=== PATIENT | female | born 1970 | race American Indian/Alaskan Native ===

== ENCOUNTER 2022-06-20 10:21 | Observation (INO) ==
--- NOTE | 2022-06-20 10:46 | Emergency Department Note ---
Neuro HPI General Chief Complaint: Neuro Symptoms/Deficit Stated Complaint: tingling and numbness in face and fingers Time Seen by Provider: 06/20/22 10:42 Source: patient Mode of arrival: ambulatory Limitations: no limitations History of Present Illness HPI Narrative: 51-year-old obese female patient with history of T2DM, hyperlipidemia, hypertension, and family history of stroke presents for acute onset right facial numbness in the V2, V3 distribution and numbness and tingling in her right hand that started about 830 this morning. Denies chest pain. Denies lightheadedness or dizziness. Denies visual disturbances. NIH stroke score 1 (moderate sensory loss). On Anticoagulants: No Related Data Home Medications Medication Instructions Recorded Confirmed calcium carbonate 200 mg calcium 400 mg PO .QD 01/21/16 11/25/16 (500 mg) chewable tablet (Tums) ergocalciferol (vitamin D2) 1,250 50,000 unit PO QWEEK 01/21/16 11/25/16 mcg (50,000 unit) capsule (Vitamin D2) loratadine 10 mg tablet 10 mg PO QDAY PRN 01/21/16 11/25/16 tramadol 50 mg tablet 50 mg PO Q6H PRN 11/25/16 11/25/16 Previous Rx's Medication Instructions Recorded clonidine HCl 0.1 mg tablet 0.1 mg PO BID 30 days #60 tabs 03/04/16 carvedilol 12.5 mg tablet 25 mg PO BID 30 days #120 tabs 08/04/16 spironolactone 50 mg tablet 50 mg PO QAM #30 tabs 08/04/16 doxazosin 2 mg tablet 2 mg PO QDAY #30 tabs 11/25/16 amoxicillin 875 mg-potassium 1 tab PO BID #20 tabs 03/11/21 clavulanate 125 mg tablet (Augmentin) codeine 10 mg-guaifenesin 100 mg/5 5 ml PO Q6H PRN bronchitis #120 mL 03/11/21 mL oral liquid mometasone 50 mcg/actuation nasal 2 spray intranasal QDAY PRN sinus 03/11/21 spray (Nasonex) symptoms #17 grams cefdinir 300 mg capsule 600 mg PO QDAY #10 caps 10/28/21 hydrocodone 5 mg-acetaminophen 325 1 tab PO Q8H PRN pain #14 tabs 10/28/21 mg tablet ondansetron HCl 4 mg tablet 4 mg PO Q8H PRN nausea and 10/28/21 (Zofran) vomiting #20 tabs Allergies Allergy/AdvReac Type Severity Reaction Status Date / Time pistachio nut Allergy Intermediate Swelling Verified 06/20/22 10:25 amlodipine AdvReac Unknown Rash Verified 06/20/22 10:25 Enalapril AdvReac Unknown Facial Verified 06/20/22 10:25 swelling hydrochlorothiazide AdvReac Unknown Vomiting Verified 06/20/22 10:25 Review of Systems ROS ROS Narrative: Narrative: All systems ED: reviewed and negative except as stated. [facility] Narrative Patient History Narrative: Narrative: Medical/Surgical/Family History All Active Problems (Updated 06/20/22 @ 13:47 by Meseret Lemus PA-C) Sinusitis (Acute) Epistaxis (Acute) Acute lacunar stroke (Acute) Hypertension, essential (Chronic) Medical History Hypertension, essential Social History Smoking Status: Current every day smoker Alcohol Intake Frequency: a few times a week Exam Narrative Narrative: General: AOx3, NAD, nontoxic appearing. Pleasant and conversant. HEENT: PERRL, EOMI, normocephalic. Moist mucous membranes. Normal facies and normal dentition. Chest: Symmetric, no pain to palpation Respiratory: Lungs clear to auscultation bilaterally. No respiratory distress. Unlabored breathing. Heart: Regular rate and rhythm, no murmurs/clicks/rubs. Abdomen: Non-tender, Non distended, normal bowel tones. No organomegaly. Extremities: Warm and well perfused. No edema. DP 2+ bilaterally. No venous stasis. There is some right groin tenderness, new presentation for her. Neuro: No focal deficits. Cranial nerves II-XII grossly normal. NIH stroke s core 1, sensory loss to V2 V3 nerve distribution. No nystagmus. No visual field neglect. Skin: Warm dry, no rashes or lesions, no cyanosis. Psych: Normal mood and affect Heme/Lymph: No abnormal bruising General Limitations: no limitations Course Course Course Narrative: 51-year-old female presents with TIA symptoms. Reevaluation(s) Reevaluation #1: Obtain head CT without contrast and basic lab work Reevaluation #2: Head CT without contrast was reported as a left lacunar infarct in the left caudate nucleus measuring 6 x 11 mm. I have reached out to telestroke. Blood glucose is 169 and blood pressure is 160/91 mmHg Reevaluation #3: Telestroke, Dr. Shen, recommends against lytics given she has only minor sensory symptoms and no disabling symptoms. She is recommending a bedside swallow eval, which would certainly be in favor of lytics if she has any swallowing issues. Recommend admission and further work-up with echo and MRI of the brain. Permissive hypertension less than 220/120 mmHg. Give 300 mg Plavix load in the ER and start 75 mg and 81 aspirin daily thereafter. Also will start atorvastatin 40 mg. Additional Reevaluation(s): Patient is severely anxious. Concern for starting antiplatelets as she recently suffered epistaxis and had undergo surgical procedure for this. We will give 0.5 mg of oral Ativan x1 dose now. Bedside swallow eval was within normal limits Vital Signs Vital signs: Vital Signs Temperature 97.2 F 06/20/22 10:22 Pulse Rate 86 06/20/22 10:22 Respiratory Rate 18 06/20/22 10:22 Blood Pressure 160/91 06/20/22 10:22 Pulse Oximetry (%) 97 06/20/22 10:22 Oxygen Delivery Method 06/20/22 10:22 Temperature 97.2 F 06/20/22 10:22 Pulse Rate 69 06/20/22 13:01 Respiratory Rate 18 06/20/22 13:01 Blood Pressure 161/88 06/20/22 13:01 Pulse Oximetry (%) 96 06/20/22 13:01 Oxygen Delivery Method 06/20/22 10:22 [facility] Narrative Medical decision making narrative: Lacunar stroke syndrome Patient will need admission overnight for monitoring, echo, MRI of the brain. I have already started Plavix with a 300 mg load and given her 81 mg of aspirin. She has also received 40 mg of atorvastatin. I also completed a CTA of the head and neck which shows only mild atherosclerotic disease in the aortic arch and no significant disease in the carotid bifurcations. I spoken with Dr. Stein who has agreed for observation admission. Lab Data Result diagrams: 06/20/22 11:40 Labs: Lab Results 06/20/22 06/20/22 Range/Units 11:40 11:45 WBC 9.7 (4.5-11.0) K/mcL RBC 4.97 (3.59-5.38) M/mcL Hgb 13.8 (11.2-15.7) g/dL Hct 43.0 (34.1-44.9) % POC Hct 42.0 (36-48) MCV 86.5 (80.0-100.0) fL MCH 27.8 (26.0-34.0) pg MCHC 32.1 (31.0-36.0) g/dL RDW 13.9 (11.5-14.5) % Plt Count 208 (140-440) K/mcL MPV 11.3 H (7.4-10.4) fL Immature Gran % (Auto) 0.3 (0.0-0.5) % Neut % (Auto) 61.6 (38.0-78.0) % Lymph % (Auto) 29.6 (15.5-49.0) % Beadle % (Auto) 7.1 (1.0-12.0) % Eos % (Auto) 1.1 (0.0-7.0) % Baso % (Auto) 0.3 (0.0-2.0) % Lymph # (Auto) 2.88 (1.50-4.80) K/mcL Beadle # (Auto) 0.69 (0.10-0.90) K/mcL Eos # (Auto) 0.11 (0.00-0.70) K/mcL Baso # (Auto) 0.03 (0.00-0.30) K/mcL Immature Gran # 0.03 (0.00-0.05) K/mcl Absolute Neutrophils 6.02 (1.80-8.00) K/mcL POC Sodium 141 (133-145) POC Potassium 4.0 (3.3-5.1) POC Chloride 107 (96-108) POC Total CO2 24.0 (22-30) POC BUN 19 (6-20) POC Creatinine 1.0 (0.6-1.2) POC Glucose 113 H (70-105) POC WB Ioniz Calcium 1.30 (1.16-1.32) Discharge Plan Patient/Caregiver Discharge Instructions Pt seen by [employer] OPERATOR/PA only: Yes Clinical Impression: Acute lacunar stroke Instructions: Ischemic Stroke (DC) Patient Disposition: Xfer As Outpt/Obs ([facility]) Condition: Fair Follow up with: Hao Costa ARNP [Primary Care Provider] - Prescriptions: No Action calcium carbonate [Tums] 200 mg calcium (500 mg) tablet,chewable 400 mg PO .QD ergocalciferol (vitamin D2) [Vitamin D2] 50,000 unit capsule 50,000 unit PO QWEEK loratadine 10 mg tablet 10 mg PO QDAY PRN clonidine HCl 0.2 mg tablet 0.1 mg PO BID 30 Days Qty: 60 4RF carvedilol 6.25 mg tablet 25 mg PO BID 30 Days Qty: 120 3RF Rx Instructions: administer with food spironolactone 25 mg tablet 50 mg PO QAM Qty: 30 4RF tramadol 50 mg tablet 50 mg PO Q6H PRN doxazosin 2 mg tablet 2 mg PO QDAY Qty: 30 6RF amoxicillin-pot clavulanate [Augmentin] 875-125 mg tablet 1 tab PO BID Qty: 20 0RF codeine-guaifenesin 10-100 mg/5 mL liquid 5 ml PO Q6H PRN (Reason: bronchitis) Qty: 120 0RF mometasone [Nasonex] 50 mcg/actuation spray,non-aerosol 2 spray intranasal QDAY PRN (Reason: sinus symptoms) Qty: 17 0RF Rx Instructions: administer into each nostril cefdinir 300 mg capsule 600 mg PO QDAY Qty: 10 0RF hydrocodone-acetaminophen 5-325 mg tablet 1 tab PO Q8H PRN (Reason: pain) Qty: 14 0RF ondansetron HCl [Zofran] 4 mg tablet 4 mg PO Q8H PRN (Reason: nausea and vomiting) Qty: 20 0RF
--- NOTE | 2022-06-20 11:34 | Cat Scan Report ---
History: Right-sided facial and finger numbness TECHNIQUE: The brain was imaged without contrast in axial plane at 2.5 mm intervals. Sagittal and coronal reformats were created. The radiation exposure was limited using dose reduction technology. FINDINGS: There is an ill-defined lacunar infarct involving the lateral border of the head of the left caudate nucleus and the adjacent anterior limb of left internal capsule. It measures approximately 6 x 11 mm in size. This is of undetermined age. No other infarct is detected. There is no hemorrhage or mass effect. Patient has mild atrophy of the frontal lobes and around the sylvian fissures. Ventricles are normal in size. There is no abnormal extra-axial fluid collection. There is severe left side sphenoid sinusitis and moderate left maxillary and milder ethmoid sinusitis. IMPRESSION: Moderate-sized lacunar infarct of undetermined age in the left caudate nucleus and left internal capsule Moderate sinusitis Meseret Lemus was called with the report Interpreted and Authenticated by: Emil Gonzales 06/20/22
[2022-06-20 11:47] LABS: POC Calcium, Ionized 1.3 (1.16-1.32)
[2022-06-20] MEDS ORDERED: LORazepam 0.5 MG TABLET PO ONE ×2 (12:09→15:08)
[2022-06-20] MEDS ORDERED: CLOPIDOGREL 300 MG TABLET PO ONE (12:10)
[2022-06-20] MEDS ORDERED: ASPIRIN 81 MG TAB.CHEW CHEWED ONE (12:12)
[2022-06-20 12:28] LABS: Basophils # (Auto) 0.03 K/mcL (0.00-0.30); Basophils % (Auto) 0.3 % (0.0-2.0); Eosinophils # (Auto) 0.11 K/mcL (0.00-0.70); Eosinophils % (Auto) 1.1 % (0.0-7.0); Hemoglobin 13.8 g/dL (11.2-15.7); Lymphocytes # (Auto) 2.88 K/mcL (1.50-4.80); Lymphocytes % (Auto) 29.6 % (15.5-49.0); Mean Cell Volume 86.5 fL (80.0-100.0); Mean Corpuscular HGB Conc 32.1 g/dL (31.0-36.0); Mean Platelet Volume 11.3 fL (7.4-10.4); Monocytes # (Auto) 0.69 K/mcL (0.10-0.90); Monocytes % (Auto) 7.1 % (1.0-12.0); Neutrophils % (Auto) 61.6 % (38.0-78.0); Platelet Count 208 K/mcL (140-440); RBC 4.97 M/mcL (3.59-5.38); Red Cell Distribution Width 13.9 % (11.5-14.5); WBC 9.7 K/mcL (4.5-11.0)
[2022-06-20] MEDS ORDERED: ONDANSETRON 4 MG ODT TABLET SL ONE (12:45)
[2022-06-20] MEDS ORDERED: LORazepam 1 MG TABLET PO ONE (13:08)
[2022-06-20] MEDS ORDERED: ATORVASTATIN 40 MG TABLET PO STA (13:14)
--- NOTE | 2022-06-20 13:17 | Cat Scan Report ---
History: New stroke symptoms, lacunar infarct in left basal ganglia Technique: Following injection of intravenous nonionic contrast the patient was scanned during the arterial phase from the aortic arch to the top of the head. Sagittal and coronal reformats were created. The radiation exposure was limited using dose reduction technology. FINDINGS: Mild atherosclerotic disease is present in the aortic arch and proximal portions of both subclavian arteries. Is also small amount of eccentric plaque in the carotid bifurcations bilaterally, left greater than right. These are not causing stenosis and there is no apparent ulcerated plaque. The internal carotids are normal with no dissection or thrombosis. The vertebral arteries are normal in caliber and nonstenotic. Incidentally noted is a multinodular goiter. The internal carotids, anterior and middle cerebral arteries are normal in caliber. The vertebral, basilar artery and posterior fossa circulation are also normal. There is no intracranial occlusion or stenosis. No aneurysm or vascular malformation are present. There is no enhancing lesion within the brain. Patient has severe left maxillary and left side sphenoid sinusitis. IMPRESSION: Mild atherosclerotic disease in the aortic arch and carotid bifurcations. No evidence of vascular occlusion or stenosis in the head or neck Sinusitis Meseret Lemus was called with the report Interpreted and Authenticated by: Emil Gonzales 06/20/22
--- NOTE | 2022-06-20 14:43 | Internal Med History&Physical ---
HPI History of Present Illness Patient information: Note initiated : 06/20/22 at 2:34 pm Service Date, if different from initiated Date: [] Patient: Suzanna Shaikh a 51 y/o F admitted on for tingling and numbness in face and fingers. Chief Complaint: [numbness and tingling] Chief complaint: numbness and tingling History of present illness: Ms. Shaikh is a 51 year old F history of type 2 diabetes mellitus, essential hypertensions, mixed dyslipidemia, presenting with 1 day history of numbness and tingling of the right hand and right face and right lips. There was no prior similar episode. Patient does not have any history of stroke or TIA. 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 She denies any focal weakness. She is committing of nausea. She denies any headaches. She denies any confusions. She denies any chest pain or palpitation or shortness of breath. She denies any dysarthria or dysphagia. Denies any hearing or visual changes. Vital signs within normal limits. Labs also within normal limits largely. CT of the head without contrast showing 6 x 11 mm moderately sized lacunar infarct of the left caudate nucleus and left internal capsule. CT angiogram of the head and the neck did not show any hemodynamically significant stenosis. Admission request is called for acute stroke. Constitutional Constitutional: Absent chills, excessive sweating, fatigue, fever(s) or weakness EENT Eyes: Absent blurry vision, change in vision, loss of vision or other visual disturbances Ears: Absent decreased hearing or tinnitus Nose, mouth and throat: Absent abnormal hearing, dry mouth, headache(s), nasal congestion or sore throat Cardiovascular Cardiovascular: Absent chest pain, chest pain at rest, edema, irregular heart rhythm or palpatations Respiratory Respiratory: Absent cough, dyspnea or wheezing Gastrointestinal Gastrointestinal: Absent abdominal pain, constipation, diarrhea, nausea or vomiting Musculoskeletal Musculoskeletal: Absent back pain, deformity, limited range of motion, muscle cramps, muscle weakness or numbness Integumentary Integumentary: Absent lesions, rash or wounds Neurological Neurological: Present numbness and tingling; Absent focal weakness, headache(s) or weakness Psychiatric Psychiatric: Absent anxiety, depression or hallucinations PFSH PFSH All Active Problems (Updated 06/20/22 @ 14:49 by Mac Stein MD) T2DM (type 2 diabetes mellitus) (Acute) Mixed dyslipidemia (Acute) Sinusitis (Acute) Epistaxis (Acute) Acute lacunar stroke (Acute) Hypertension, essential (Chronic) Medical History Hypertension, essential Social History alcohol intake frequency: a few times a week MEDS/ALLERGIES Home Medications and Allergies Home Medications Medication Instructions Recorded Confirmed Type calcium carbonate 200 mg calcium 400 mg PO .QD 01/21/16 11/25/16 History (500 mg) chewable tablet (Tums) ergocalciferol (vitamin D2) 1,250 50,000 unit PO QWEEK 01/21/16 11/25/16 History mcg (50,000 unit) capsule (Vitamin D2) loratadine 10 mg tablet 10 mg PO QDAY PRN 01/21/16 11/25/16 History clonidine HCl 0.1 mg tablet 0.1 mg PO BID 30 days #60 tabs 03/04/16 11/25/16 Rx carvedilol 12.5 mg tablet 25 mg PO BID 30 days #120 tabs 08/04/16 11/25/16 Rx spironolactone 50 mg tablet 50 mg PO QAM #30 tabs 08/04/16 11/25/16 Rx doxazosin 2 mg tablet 2 mg PO QDAY #30 tabs 11/25/16 11/25/16 Rx tramadol 50 mg tablet 50 mg PO Q6H PRN 11/25/16 11/25/16 History amoxicillin 875 mg-potassium 1 tab PO BID #20 tabs 03/11/21 Rx clavulanate 125 mg tablet (Augmentin) codeine 10 mg-guaifenesin 100 mg/5 5 ml PO Q6H PRN bronchitis #120 mL 03/11/21 Rx mL oral liquid mometasone 50 mcg/actuation nasal 2 spray intranasal QDAY PRN sinus 03/11/21 Rx spray (Nasonex) symptoms #17 grams cefdinir 300 mg capsule 600 mg PO QDAY #10 caps 10/28/21 Rx hydrocodone 5 mg-acetaminophen 325 1 tab PO Q8H PRN pain #14 tabs 10/28/21 Rx mg tablet ondansetron HCl 4 mg tablet 4 mg PO Q8H PRN nausea and 10/28/21 Rx (Zofran) vomiting #20 tabs Allergies Allergy/AdvReac Type Severity Reaction Status Date / Time pistachio nut Allergy Intermediate Swelling Verified 06/20/22 10:25 amlodipine AdvReac Unknown Rash Verified 06/20/22 10:25 Enalapril AdvReac Unknown Facial Verified 06/20/22 10:25 swelling hydrochlorothiazide AdvReac Unknown Vomiting Verified 06/20/22 10:25 EXAM Constitutional Vitals: Temp Pulse Resp BP Pulse Ox O2 Del Method 36.2 C 63 18 173/79 94 06/20/22 10:22 06/20/22 14:16 06/20/22 14:16 06/20/22 14:16 06/20/22 14:16 06/20/22 10:22 General appearance: cooperative and no acute distress Head Head exam: Present atraumatic and normocephalic Eye Eye exam: Present EOMI and PERRL ENT ENT exam: Present mucous membranes moist, normal exam and normal external ear exam Additional comments: Right facial and lips numbness Neck Neck exam: Present normal inspection; Absent lymphadenopathy, tenderness or thyromegaly Respiratory Respiratory exam: Absent accessory muscle use, respiratory distress or wheezes Cardiovascular Cardiovascular exam: Present normal rate and rhythm; Absent JVD GI/Abdominal GI/Abdominal exam: Present normal bowel sounds and soft; Absent organomegaly or tenderness Extremities Exam Extremities exam: Present full ROM, normal capillary refill and normal inspection; Absent tenderness Neurological Exam Neurological exam: Present alert, CN II-XII intact and oriented X3; Absent motor sensory deficit Additional comments: Right facial and lips numbness Psychiatric Psychiatric exam: Present normal affect and normal mood; Absent anxious or depressed Skin Skin exam: Present dry and intact DATA Data Completed and Pending Labs: Labs from last 24 hours 06/20/22 06/20/22 11:45 11:40 WBC 9.7 RBC 4.97 Hgb 13.8 Hct 43.0 POC Hct 42.0 MCV 86.5 MCH 27.8 MCHC 32.1 RDW 13.9 Plt Count 208 MPV 11.3 H Immature Gran % (Auto) 0.3 Neut % (Auto) 61.6 Lymph % (Auto) 29.6 Sanders % (Auto) 7.1 Eos % (Auto) 1.1 Baso % (Auto) 0.3 Lymph # (Auto) 2.88 Sanders # (Auto) 0.69 Eos # (Auto) 0.11 Baso # (Auto) 0.03 Immature Gran # 0.03 Absolute Neutrophils 6.02 POC Sodium 141 POC Potassium 4.0 POC Chloride 107 POC Total CO2 24.0 POC BUN 19 POC Creatinine 1.0 POC Glucose 113 H POC WB Ioniz Calcium 1.30 A/P Assessment and plan (1) Acute lacunar stroke: Status: Acute (2) Hypertension, essential: Status: Chronic (3) Mixed dyslipidemia: Status: Acute (4) T2DM (type 2 diabetes mellitus): Status: Acute Narrative A/P Narrative: Assessment and Plans: 1. Left caudate nucleus and left internal capsule lacunar infarct: Observation PCU with telemetry Permissive HTN for 48 hours Lipid panel HgA1c MRI brain stroke protocol 2D echocardiogram Aspirin Plavix Statin Physical therapy Occupational therapy 2. T2DM: HgA1c Hold oral hypoglycemics SSI AC HS Accu Chek AC HS Hypoglycemia protocol Diabetic diet 3. Essential HTN: Permissive HTN for 48 hours Hold oral antihypertensives Hydralazine 10mg IV q4-6hr PRN SBP>=220 and/or DBP>=120mmHg 4. Mixed dyslipidemia: Lipid panel Statin therapy GI ppx: not currently indicated DVT ppx: Lovenox Code status: Full Prognosis: stable Disposition: observation PCU; PT OT Time Spent With Patient Time: Total time spent is greater than 50% in coordination of care (as documented) at patient's floor/unit and/or counseling patient: Total time spent with greater than 50% in coordination of care (as documented) at patient's floor/unit and/or counseling patient:: 50 - 70 minutes
[2022-06-20] MEDS ORDERED: DEXTROSE 50% 50 ML VIAL IV PRN (14:45)
[2022-06-20] MEDS ORDERED: LORATADINE 10 MG TABLET PO PRN (14:45)
[2022-06-20] MEDS ORDERED: IPRATROPIUM/ALBUTEROL 3 ML AMPUL.NEB NEB PRN (14:45)
[2022-06-20] MEDS ORDERED: traMADol (PP) 50 MG TABLET (#4) PO PRN (14:45)
[2022-06-20] MEDS ORDERED: SENNOSIDES 1 TABLET PO PRN (14:45)
[2022-06-20] MEDS ORDERED: ACETAMINOPHEN 325 MG TABLET PO PRN (14:45)
[2022-06-20] MEDS ORDERED: DEXTROSE 31 GM ORAL.SUSP PO PRN (14:45)
[2022-06-20] MEDS ORDERED: hydrALAZINE 20 MG/ML VIAL IV PRN (14:45)
[2022-06-20] MEDS ORDERED: MOMETASONE NAS SPRAY 1 SPRAY BOTTLE NAS PRN (14:45)
[2022-06-20] MEDS ORDERED: GUAIFENESIN PO PRN (14:45)
[2022-06-20] MEDS ORDERED: CODEINE PO PRN (14:45)
[2022-06-20] MEDS ORDERED: ONDANSETRON 4 MG/2 ML VIAL IV PRN (14:45)
[2022-06-20] MEDS ORDERED: LACTULOSE 20 GM/30 ML ORAL.SOL PO PRN (14:45)
[2022-06-20] MEDS: LORazepam 1 MG TABLET PO ONE ×2 (15:05→15:18)
[2022-06-20] MEDS ORDERED: HYDROcodone/APAP 5/325MG TABLET PO PRN (15:09)
[2022-06-20] MEDS ORDERED: traMADol 50 MG TABLET PO PRN (15:15)
[2022-06-20] MEDS ORDERED: guaiFENesin/CODEINE 10 ML UDC PO PRN (15:30)
--- NOTE | 2022-06-20 16:03 | Magnetic Resonance Report ---
History: Acute stroke symptoms with right facial numbness and right hand tingling TECHNIQUE: Stroke protocol was performed using multiple pulse sequences. FINDINGS: The T2 FLAIR sequence reveals the presence of multiple scattered high signal lesions in the centrum semiovale predominantly involving the frontal and parietal lobes. There is milder involvement in the occipital and posterior temporal lobes. The low-attenuation lesion which appear to be a lacunar infarct in the head of the left caudate nucleus, on the preceding head CT, has signal characteristics similar to the other white matter lesions. None of them have mass effect and there is no restricted diffusion. There is no acute infarct. No hemorrhage or neoplasm are present. The ventricles are normal in size. There is no abnormal extra-axial fluid collection. Severe left maxillary and sphenoid sinusitis is again noted. IMPRESSION: No evidence of an acute infarct or hemorrhage. Moderately severe diffuse white matter disease. An elderly patient this is most commonly associated with microvascular ischemia or degeneration. In a younger individual this may be associated with chronic repetitive head injuries, substance abuse or exposure to toxins. Multiple sclerosis is possible but the pattern is atypical. Dr. Stein called with the report Interpreted and Authenticated by: Emil Gonzales 06/20/22
[2022-06-20] MEDS: INSULIN LISPRO 1 UNIT/0.01 ML UNIT SQ SCH ×2 (16:13→21:29)
[2022-06-20] MEDS ORDERED: DOXAZOSIN 1 MG TABLET PO SCH (21:00)
[2022-06-20] MEDS: 0.9 % SODIUM CHLORIDE 10 ML SYRINGE IV SCH (21:29)
[2022-06-20] MEDS: DOCUSATE SODIUM 100 MG CAPSULE PO SCH (21:29)
[2022-06-21] MEDS: 0.9 % SODIUM CHLORIDE 10 ML SYRINGE IV SCH (05:58)
[2022-06-21] MEDS: ASPIRIN 81 MG TAB.CHEW CHEWED SCH ×2 (05:58→07:48)
[2022-06-21 06:22] LABS: Basophils # (Auto) 0.03 K/mcL (0.00-0.30); Basophils % (Auto) 0.4 % (0.0-2.0); Eosinophils # (Auto) 0.14 K/mcL (0.00-0.70); Eosinophils % (Auto) 1.7 % (0.0-7.0); Hematocrit 40.8 % (34.1-44.9); Hemoglobin 12.8 g/dL (11.2-15.7); Lymphocytes # (Auto) 2.81 K/mcL (1.50-4.80); Lymphocytes % (Auto) 34.1 % (15.5-49.0); Mean Cell Volume 88.5 fL (80.0-100.0); Mean Corpuscular HGB Conc 31.4 g/dL (31.0-36.0); Monocytes # (Auto) 0.52 K/mcL (0.10-0.90); Monocytes % (Auto) 6.3 % (1.0-12.0); Neutrophils % (Auto) 57.1 % (38.0-78.0); Platelet Count 175 K/mcL (140-440); RBC 4.61 M/mcL (3.59-5.38); WBC 8.2 K/mcL (4.5-11.0)
[2022-06-21 06:45] LABS: ALT/SGPT 18 U/L (<40); AST/SGOT 18 U/L (<32); Albumin 3.9 gm/dL (3.2-5.2); Albumin/Globulin Ratio 1.1 (1.0-2.3); Alkaline Phosphatase 89 U/L (39-117); Bilirubin,Total 0.2 mg/dL (0.1-1.0); Blood Urea Nitrogen 18 mg/dL (6-20); Calcium 9.5 mg/dL (8.6-10.4); Carbon Dioxide 20 mmol/L (22-30); Chloride 103 mmol/L (96-108); Globulin 3.4 gm/dL (2.2-3.7); Glomerular Filtration Rate 64; Glucose 147 mg/dL (70-105); Phosphorous 4.3 mg/dL (2.5-4.5)
[2022-06-21] MEDS: INSULIN LISPRO 1 UNIT/0.01 ML UNIT SQ SCH ×2 (06:53→11:38)
[2022-06-21] MEDS: DOCUSATE SODIUM 100 MG CAPSULE PO SCH (08:53)
[2022-06-21] MEDS ORDERED: Empagliflozin [Jardiance] 25 mg tablet PO SCH (09:00)
[2022-06-21] MEDS ORDERED: CLOPIDOGREL 75 MG TABLET PO SCH (09:00)
[2022-06-21] MEDS ORDERED: ATORVASTATIN 40 MG TABLET PO SCH ×2 (09:00)
[2022-06-21] MEDS ORDERED: CALCIUM CARBONATE 500 MG TAB.CHEW CHEWED SCH (09:00)
[2022-06-21] MEDS ORDERED: ENOXAPARIN 40 MG/0.4 ML SYRINGE SQ SCH (09:00)
--- NOTE | 2022-06-21 10:20 | Discharge Summary ---
Discharge Provider Provider IMPORTANT FOLLOW-UP INFORMATION FOR PCP: Patient information: Note initiated : 06/21/22 at 10:17 am Service Date, if different from initiated Date: [] Patient: Suzanna Shaikh 51 y/o F admitted on 06/20/22 for tingling and numbness in face and fingers. Chief Complaint: [] Date of admission: 06/20/22 14:50 Discharge date: 06/21/22 Primary care physician: MIKAELA Alvarenga Attending physician on admission: Mac Stein Consults: 06/20/22 11:36 Consult to Physician [CONS] Stat Comment: Consulting Provider: Telestroke,Provider Reason For Exam: Physician to Consult 06/20/22 12:07 Consult to Physician [CONS] Stat Comment: Consulting Provider: Mac Stein Reason For Exam: Physician to Consult Attending physician on discharge: Mac Stein COURSE Hospital Course Hospital course: Ms. Shaikh is a 51 year old F history of type 2 diabetes mellitus, essential hypertensions, mixed dyslipidemia, presenting with 1 day history of numbness and tingling of the right hand and right face and right lips. There was no prior similar episode. Patient does not have any history of stroke or TIA. 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 She denies any focal weakness. She is committing of nausea. She denies any headaches. She denies any confusions. She denies any chest pain or palpitation or shortness of breath. She denies any dysarthria or dysphagia. Denies any hearing or visual changes. Vital signs within normal limits. Labs also within normal limits largely. CT of the head without contrast showing 6 x 11 mm moderately sized lacunar infarct of the left caudate nucleus and left internal capsule. CT angiogram of the head and the neck did not show any hemodynamically significant stenosis. Admission request is called for acute stroke. 06/21: NIH stroke scale of 1 this morning patient is continue to complaining of numbness and tingling of her right hand and right lips. MRI of the brain stroke protocol did not see any for site of new stroke/infarct. 2D echocardiogram performed results pending. Patient's evaluated by his physical therapist deemed patient is appropriate to return home upon medical stability. Decision does made to discharge patient home with prescriptions sent to pharmacy, 2 weeks PCP follow-up appointment made for the patient, and all the questions were answered prior to patient's being discharged. Discharge diagnosis: TIA Time Spent with Patient Time attestation: Total time spent providing and/or coordinating discharge services: Time spent: Less than 30 minutes EXAM Constitutional Vitals: Temp Pulse Resp BP Pulse Ox O2 Del Method O2 Flow Rate 36.8 C 64 17 163/95 96 0 06/21/22 08:01 06/21/22 06:01 06/21/22 08:01 06/21/22 08:01 06/21/22 08:01 06/21/22 00:27 06/21/22 08:01 General appearance: cooperative and no acute distress Head Head exam: Present atraumatic and normocephalic Eye Eye exam: Present EOMI and PERRL ENT ENT exam: Present mucous membranes moist, normal exam and normal external ear exam Neck Neck exam: Present normal inspection; Absent lymphadenopathy, tenderness or thyromegaly Respiratory Respiratory exam: Absent accessory muscle use, respiratory distress or wheezes Cardiovascular Cardiovascular exam: Present normal rate and rhythm; Absent JVD GI/Abdominal GI/Abdominal exam: Present normal bowel sounds and soft; Absent organomegaly or tenderness Extremities Exam Extremities exam: Present full ROM, normal capillary refill and normal inspection; Absent tenderness Neurological Exam Neurological exam: Present alert, CN II-XII intact and oriented X3; Absent motor sensory deficit Additional comments: numbness of right hand and lips Psychiatric Psychiatric exam: Present normal affect and normal mood; Absent anxious or depressed Skin Skin exam: Present dry and intact Discharge Data Data Completed and Pending Labs on day of discharge: Labs from last 24 hours 06/21/22 06/21/22 06/20/22 05:29 05:29 11:45 WBC 8.2 RBC 4.61 Hgb 12.8 Hct 40.8 POC Hct 42.0 MCV 88.5 MCH 27.8 MCHC 31.4 RDW 14.0 Plt Count 175 MPV 11.0 H Immature Gran % (Auto) 0.4 Neut % (Auto) 57.1 Lymph % (Auto) 34.1 Harlan % (Auto) 6.3 Eos % (Auto) 1.7 Baso % (Auto) 0.4 Lymph # (Auto) 2.81 Harlan # (Auto) 0.52 Eos # (Auto) 0.14 Baso # (Auto) 0.03 Immature Gran # 0.03 Absolute Neutrophils 4.74 POC Sodium 141 Sodium 136 POC Potassium 4.0 Potassium 4.3 POC Chloride 107 Chloride 103 Carbon Dioxide 20 L POC Total CO2 24.0 Anion Gap 13.0 POC BUN 19 BUN 18 Creatinine 1.0 POC Creatinine 1.0 GFR Calculation 64 Glucose 147 H POC Glucose 113 H Calcium 9.5 POC WB Ioniz Calcium 1.30 Phosphorus 4.3 Magnesium 2.1 Total Bilirubin 0.2 AST 18 ALT 18 Alkaline Phosphatase 89 Total Protein 7.3 Albumin 3.9 Globulin 3.4 Albumin/Globulin Ratio 1.1 06/20/22 11:40 WBC 9.7 RBC 4.97 Hgb 13.8 Hct 43.0 POC Hct MCV 86.5 MCH 27.8 MCHC 32.1 RDW 13.9 Plt Count 208 MPV 11.3 H Immature Gran % (Auto) 0.3 Neut % (Auto) 61.6 Lymph % (Auto) 29.6 Harlan % (Auto) 7.1 Eos % (Auto) 1.1 Baso % (Auto) 0.3 Lymph # (Auto) 2.88 Harlan # (Auto) 0.69 Eos # (Auto) 0.11 Baso # (Auto) 0.03 Immature Gran # 0.03 Absolute Neutrophils 6.02 POC Sodium Sodium POC Potassium Potassium POC Chloride Chloride Carbon Dioxide POC Total CO2 Anion Gap POC BUN BUN Creatinine POC Creatinine GFR Calculation Glucose POC Glucose Calcium POC WB Ioniz Calcium Phosphorus Magnesium Total Bilirubin AST ALT Alkaline Phosphatase Total Protein Albumin Globulin Albumin/Globulin Ratio Discharge Plan Patient/Caregiver Discharge Instructions Activity: increase activity as tolerated Diet: Consistent Carbohydrate Instructions: Ischemic Stroke (GEN), Hypertension (GEN), Return to Work Instructions (DC) Prescriptions: New calcium carbonate 500 mg calcium (1,250 mg) Tablet,Chewable 500 mg CHEWED DAILY 30 Days Qty: 30 0RF codeine-guaifenesin [Guaiatussin AC] 10-100 mg/5 mL Liquid 5 ml PO Q6HP PRN (Reason: Cough) Qty: 120 0RF Aspirin 81 mg CHEWED DAILY 30 Days 0RF atorvastatin 40 mg Tablet 40 mg PO DAILY 30 Days Qty: 30 0RF doxazosin 1 mg Tablet 2 mg PO HS 30 Days Qty: 60 0RF hydrocodone-acetaminophen 5-325 mg Tablet 1 tab PO Q8HP PRN (Reason: Pain) 7 Days Qty: 21 0RF clopidogrel 75 mg Tablet 75 mg PO DAILY 30 Days Qty: 30 0RF tramadol 50 mg Tablet 50 mg PO Q6HP PRN (Reason: Pain Level 3-6) 30 Days Qty: 20 0RF mometasone 50 mcg/actuation [place],Non-Aerosol 2 spray intranasal QDAY PRN (Reason: sinus symptoms) 30 Days Qty: 17 0RF ergocalciferol (vitamin D2) 1,250 mcg (50,000 unit) Capsule 50,000 unit PO QWEEK 30 Days Qty: 4 0RF loratadine 10 mg Tablet 10 mg PO QDAY PRN (Reason: allergy) 30 Days Qty: 20 0RF Continued (DME) blood-glucose meter [Educabilia Lite] Kit MISCELLANEOUS Label Comments: [NO ORIGINAL SIG] albuterol sulfate 90 mcg/actuation HFA aerosol inhaler 2 puff INHALATION Q4HP PRN (Reason: Shortness Of Breath Or Wheezing) Label Comments: [NO ORIGINAL SIG] losartan 100 mg tablet 1 tab PO QDAY metformin 750 mg tablet extended release 24 hr 1 tab PO QDAY Januvia 100 mg tablet 1 tab PO QDAY Jardiance 25 mg tablet 1 tab PO QDAY Follow Up Plan Follow up with: PCP, PCP [Other] Hao Costa ARNP [Primary Care Provider] - 06/30/22 10:00 am Patient Disposition: Home, Self-Care Prognosis: Fair Rehab Potential: Good I certify that the patient requires SNF services: No Overall status at discharge: patient is progressing back to baseline Discharge Orders: Discharge Order (Routine); Ordered 06/21/22 Ordered By: Mac DAY VTE Deep Vein Thrombosis/Pulmonary Embolism Present on Admission: No
[2022-06-27] MEDS ORDERED: ERGOCALCIFEROL (VITAMIN D2) 50,000 UNIT CAPSULE PO SCH (09:00)
== END 2022-06-21 11:45 | disposition home or self-care (01) ==
LOC: ED 10:21 → ICU 14:50 → INTOOBSV 14:50
PROVIDERS: ADMIT Internal Medicine; ATTEND Internal Medicine